=== PATIENT | male | born 1990 | race African-American/Black ===

== ENCOUNTER 2019-04-25 07:27 | Inpatient (IN) | payer OTHER ==
[~2019-04-25] VITALS: Ht 185.4 cm; Wt 75.7 kg
[2019-04-25 07:32] VITALS: Ht 185.4 cm; Wt 75.7 kg
[2019-04-25 08:22] LABS: CALCIUM 9.4 mg/dL (8.5-10.1); CARBON DIOXIDE 26.3 mmol/L (21-32); CHLORIDE SERUM 98 mmol/L (98-107); CREATININE SERUM 0.9 mg/dL (0.7-1.3); GFR1 > 60 mL/min; GLUCOSE SERUM 165 mg/dL (74-106); SODIUM SERUM 135 mmol/L (136-145)
[2019-04-25 08:35] LABS: ALBUMIN 4.4 g/dL (3.4-5.0); ALKALINE PHOSPHATASE 99 U/L (46-116); ALT/SGPT 146 U/L (16-63); AST/SGOT 135 U/L (15-37); BASOPHIL % 0 % (0-2); BILIRUBIN TOTAL 1.91 mg/dL (0.20-1.00); CHOLESTEROL 148 mg/dL (<200); LIPASE 773 IU/L (73-393); PLATELET COUNT 138 x10^3mcL (130-400); RED CELL DISTRIBUTION WIDTH 12.5 % (11.5-14.5); T4(THYROXINE) 6.8 ug/dL (4.7-13.3)
[2019-04-25 08:46] LABS: HDL CHOLESTEROL 62 mg/dL (40-60); TOTAL PROTEIN, SERUM 8.4 g/dL (6.4-8.2)
[2019-04-25 10:26] LABS: microscopic required? NO
[2019-04-25 11:05] LABS: AMPHETAMINE QUAL UR NONE DETECTED (See below)
[2019-04-25 13:17] VITALS: BP 146/91
[2019-04-25 13:49] LABS: UA SPECIFIC GRAVITY <=1.005 (1.005-1.035); urine erythrocyte NEGATIVE (NEGATIVE)
[2019-04-25 16:54] VITALS: BP 134/88
[2019-04-25 20:48] VITALS: BP 140/95
[2019-04-26 05:46] VITALS: BP 138/88
[2019-04-26 06:10] LABS: BASOPHIL % 0.2 % (0-2); RED CELL DISTRIBUTION WIDTH 12.7 % (11.5-14.5)
[2019-04-26 06:39] LABS: CALCIUM 8.2 mg/dL (8.5-10.1); CARBON DIOXIDE 26.5 mmol/L (21-32); CHLORIDE SERUM 104 mmol/L (98-107); CREATININE SERUM 0.9 mg/dL (0.7-1.3); GFR1 > 60 mL/min; GLUCOSE SERUM 122 mg/dL (74-106); LIPASE 335 IU/L (73-393); POTASSIUM SERUM 3.7 mmol/L (3.5-5.1); SODIUM SERUM 140 mmol/L (136-145)
[2019-04-26 06:49] LABS: PLATELET COUNT 114 x10^3mcL (130-400)
[2019-04-26 08:07] VITALS: BP 149/94
[2019-04-26 16:26] VITALS: BP 132/92
[2019-04-26 20:34] VITALS: BP 149/98
[2019-04-27 06:00] VITALS: BP 122/83
[2019-04-27 06:32] LABS: BASOPHIL % 0.2 % (0-2); RED CELL DISTRIBUTION WIDTH 12.7 % (11.5-14.5)
[2019-04-27 06:33] LABS: PLATELET COUNT 109 x10^3mcL (130-400)
[2019-04-27 06:49] LABS: CALCIUM 8.6 mg/dL (8.5-10.1); CARBON DIOXIDE 26.7 mmol/L (21-32); CHLORIDE SERUM 101 mmol/L (98-107); CREATININE SERUM 0.7 mg/dL (0.7-1.3); GFR1 > 60 mL/min; GLUCOSE SERUM 94 mg/dL (74-106); LIPASE 252 IU/L (73-393); POTASSIUM SERUM 3.5 mmol/L (3.5-5.1); SODIUM SERUM 137 mmol/L (136-145)
[2019-04-27 08:35] VITALS: BP 123/76
[2019-04-27 10:31] VITALS: BP 123/76
== END 2019-04-27 16:20 | disposition home or self-care (01) | DRG 282 ==
LOC: ED 07:27 → MU 11:50
PROVIDERS: Emergency Medicine; General Practice; ADMIT Internal Medicine
DX: K85.90 Acute pancreatitis without necrosis or infection, unspecified (principal); Z82.49 Family history of ischemic heart disease and other diseases of the circulatory system; F10.20 Alcohol dependence, uncomplicated; Y90.9 Presence of alcohol in blood, level not specified; Z83.3 Family history of diabetes mellitus
CPT/HCPCS: C9113; G0378; G0480; J1885; J2270; J2405; J3010; J7030; J7042; Q9967

== ENCOUNTER 2019-08-23 18:34 | Inpatient (IN) | payer OTHER ==
[~2019-08-23] VITALS: Ht 185.4 cm; Wt 81.0 kg
[2019-08-23 18:43] VITALS: Ht 185.4 cm; Wt 81.0 kg
[2019-08-23 19:21] LABS: BASOPHIL % 0.1 % (0-2); PLATELET COUNT 223 x10^3mcL (130-400); RED CELL DISTRIBUTION WIDTH 12.5 % (11.5-14.5)
[2019-08-23 19:26] LABS: CALCIUM 8.9 mg/dL (8.5-10.1); CARBON DIOXIDE 26.4 mmol/L (21-32); CHLORIDE SERUM 102 mmol/L (98-107); GFR1 > 60 mL/min; GLUCOSE SERUM 100 mg/dL (74-106); POTASSIUM SERUM 4.1 mmol/L (3.5-5.1); SODIUM SERUM 139 mmol/L (136-145)
[2019-08-23 19:33] LABS: ALBUMIN 4.6 g/dL (3.4-5.0); ALKALINE PHOSPHATASE 50 U/L (46-116); ALT/SGPT 29 U/L (16-63); AST/SGOT 29 U/L (15-37); BILIRUBIN TOTAL 1.2 mg/dL (0.20-1.00); MAGNESIUM 1.5 mg/dL (1.8-2.4)
[2019-08-23 19:34] LABS: AMYLASE 296 U/L (25-115); TOTAL PROTEIN, SERUM 8.3 g/dL (6.4-8.2)
[2019-08-23 19:57] LABS: LIPASE 3606 IU/L (73-393)
[2019-08-23 20:43] LABS: microscopic required? NO
[2019-08-23 20:58] LABS: CHOLESTEROL/HDL RATIO 2.2
[2019-08-23 21:01] LABS: UA SPECIFIC GRAVITY 1.025 (1.005-1.035); urine erythrocyte NEGATIVE (NEGATIVE)
[2019-08-23 21:06] LABS: T3 TOTAL 0.72 ng/mL
[2019-08-23 21:08] LABS: FREE T4 0.74 ng/dL (0.76-1.46)
[2019-08-23 21:09] LABS: AMPHETAMINE QUAL UR NONE DETECTED (See below)
[2019-08-23 21:09] LABS: FREE THYROXINE INDEX 1.5 ug/dL (1.4-4.5); T4(THYROXINE) 3.7 ug/dL (4.7-13.3)
[2019-08-23 21:17] VITALS: BP 128/84
[2019-08-24 05:35] LABS: BASOPHIL % 0.1 % (0-2); PLATELET COUNT 200 x10^3mcL (130-400); RED CELL DISTRIBUTION WIDTH 12.5 % (11.5-14.5)
[2019-08-24 05:37] LABS: CALCIUM 8.4 mg/dL (8.5-10.1); CARBON DIOXIDE 23.4 mmol/L (21-32); CHLORIDE SERUM 103 mmol/L (98-107); CREATININE SERUM 0.9 mg/dL (0.7-1.3); GFR1 > 60 mL/min; GLUCOSE SERUM 108 mg/dL (74-106); MAGNESIUM 2.7 mg/dL (1.8-2.4); PHOSPHOROUS 3.8 mg/dL (2.5-4.9); POTASSIUM SERUM 4.3 mmol/L (3.5-5.1); SODIUM SERUM 137 mmol/L (136-145)
[2019-08-24 06:23] VITALS: BP 143/87
[2019-08-24 07:55] VITALS: BP 147/83
[2019-08-24 12:15] VITALS: BP 159/99
[2019-08-24 16:43] VITALS: BP 150/96
[2019-08-24 21:14] VITALS: BP 147/96
[2019-08-25 06:14] VITALS: BP 144/94
[2019-08-25 06:30] LABS: BASOPHIL % 0.1 % (0-2); PLATELET COUNT 160 x10^3mcL (130-400); RED CELL DISTRIBUTION WIDTH 13.1 % (11.5-14.5)
[2019-08-25 06:39] LABS: CALCIUM 8.4 mg/dL (8.5-10.1); CARBON DIOXIDE 27.4 mmol/L (21-32); CHLORIDE SERUM 102 mmol/L (98-107); CREATININE SERUM 0.8 mg/dL (0.7-1.3); GFR1 > 60 mL/min; GLUCOSE SERUM 90 mg/dL (74-106); MAGNESIUM 1.9 mg/dL (1.8-2.4); PHOSPHOROUS 2.6 mg/dL (2.5-4.9); POTASSIUM SERUM 4.3 mmol/L (3.5-5.1); SODIUM SERUM 137 mmol/L (136-145)
[2019-08-25 07:13] LABS: LIPASE 5064 IU/L (73-393)
[2019-08-25 08:06] VITALS: BP 142/94
[2019-08-25 11:50] VITALS: BP 136/89
[2019-08-25 16:34] VITALS: BP 139/89
[2019-08-25 20:25] VITALS: BP 148/95
[2019-08-26 05:36] VITALS: BP 135/89
[2019-08-26 06:40] LABS: BASOPHIL % 0.4 % (0-2); PLATELET COUNT 132 x10^3mcL (130-400); RED CELL DISTRIBUTION WIDTH 12.4 % (11.5-14.5)
[2019-08-26 06:53] LABS: CALCIUM 8.2 mg/dL (8.5-10.1); CARBON DIOXIDE 29.3 mmol/L (21-32); CHLORIDE SERUM 102 mmol/L (98-107); CREATININE SERUM 0.7 mg/dL (0.7-1.3); GFR1 > 60 mL/min; GLUCOSE SERUM 119 mg/dL (74-106); LIPASE 1393 IU/L (73-393); MAGNESIUM 1.9 mg/dL (1.8-2.4); PHOSPHOROUS 1.9 mg/dL (2.5-4.9); POTASSIUM SERUM 3.7 mmol/L (3.5-5.1); SODIUM SERUM 138 mmol/L (136-145)
[2019-08-26 08:01] VITALS: BP 125/76
[2019-08-26 11:27] VITALS: BP 142/91
[2019-08-26 15:51] VITALS: BP 137/88
[2019-08-26 17:30] VITALS: BP 152/96
[2019-08-27 05:42] VITALS: BP 145/98
[2019-08-27 06:32] LABS: BASOPHIL % 0.3 % (0-2); PLATELET COUNT 132 x10^3mcL (130-400); RED CELL DISTRIBUTION WIDTH 12.6 % (11.5-14.5)
[2019-08-27 06:54] LABS: CALCIUM 8.4 mg/dL (8.5-10.1); CARBON DIOXIDE 26.7 mmol/L (21-32); CHLORIDE SERUM 104 mmol/L (98-107); CREATININE SERUM 0.7 mg/dL (0.7-1.3); GFR1 > 60 mL/min; GLUCOSE SERUM 119 mg/dL (74-106); LIPASE 461 IU/L (73-393); MAGNESIUM 1.8 mg/dL (1.8-2.4); PHOSPHOROUS 2.5 mg/dL (2.5-4.9); POTASSIUM SERUM 3.6 mmol/L (3.5-5.1); SODIUM SERUM 139 mmol/L (136-145)
[2019-08-27 07:55] VITALS: BP 151/94
[2019-08-27] MEDS ORDERED: FOL1 PO (09:19)
[2019-08-27] MEDS ORDERED: THI100 PO (09:20)
[2019-08-27] MEDS ORDERED: THERA-M CAPLET1 EACH PO (09:20)
[2019-08-27 11:14] VITALS: BP 149/92
[2019-08-27 11:17] VITALS: BP 149/92
== END 2019-08-27 14:10 | disposition home or self-care (01) | DRG 282 ==
LOC: ED 18:34 → MU 20:27
PROVIDERS: Emergency Medicine; ADMIT Internal Medicine
DX: K85.20 Alcohol induced acute pancreatitis without necrosis or infection (principal); E83.42 Hypomagnesemia; K86.0 Alcohol-induced chronic pancreatitis; E80.6 Other disorders of bilirubin metabolism; F10.229 Alcohol dependence with intoxication, unspecified; D72.829 Elevated white blood cell count, unspecified; F10.239 Alcohol dependence with withdrawal, unspecified; Y90.0 Blood alcohol level of less than 20 mg/100 ml
CPT/HCPCS: 84439; C9113; G0378; G0480; J1170; J1885; J2060; J2270; J2405; J3010; J3411; J3475; J3490; J7030; Q0092

== ENCOUNTER 2020-06-10 16:59 | Emergency (ER) | payer OTHER ==
[~2020-06-10] VITALS: Ht 185.4 cm; Wt 78.0 kg
[~2020-06-10 16:59] MED LIST: FOL1 PO; THERA-M CAPLET1 EACH PO; THI100 PO
[2020-06-10 17:17] VITALS: Ht 185.4 cm; Wt 78.0 kg
[2020-06-10 19:58] VITALS: BP 151/92
[2020-06-10 20:14] LABS: PLATELET COUNT 154 x10^3mcL (152-348); RED CELL DISTRIBUTION WIDTH 12.6 % (12.1-16.2)
[2020-06-10 20:21] LABS: BASOPHIL % 0 % (0.2-1.5)
[2020-06-10 20:32] LABS: rbc morphology (normal/abnorm) NORMAL (NORMAL)
[2020-06-10 20:49] LABS: CARBON DIOXIDE 25.7 mmol/L (21-32); CHLORIDE SERUM 100 mmol/L (98-107); CREATININE SERUM 1.1 mg/dL (0.7-1.3); GFR1 > 60 mL/min; GLUCOSE SERUM 121 mg/dL (74-106); POTASSIUM SERUM 4.3 mmol/L (3.5-5.1); SODIUM SERUM 140 mmol/L (136-145)
[2020-06-10 20:54] LABS: ALBUMIN 4.9 g/dL (3.4-5.0); ALKALINE PHOSPHATASE 67 U/L (46-116); ALT/SGPT 49 U/L (16-63); AST/SGOT 30 U/L (15-37); LIPASE 1306 IU/L (73-393)
[2020-06-10 20:55] LABS: TOTAL PROTEIN, SERUM 9.6 g/dL (6.4-8.2)
== END 2020-06-10 21:33 | disposition home or self-care (01) ==
LOC: ED 16:59
PROVIDERS: Emergency Medicine
DX: K85.90 Acute pancreatitis without necrosis or infection, unspecified (principal); R11.0 Nausea
CPT/HCPCS: Q0162